=== PATIENT | female | born 1945 | race Caucasian/White ===

== ENCOUNTER 2017-11-15 10:00 | Outpatient (RCR) | payer OTHER | END 2017-11-17 23:59 | LOC: NEWBEG 10:00 | PROVIDERS: ATTEND Psychiatry & Neurology Psychiatry | DX: F33.1 Major depressive disorder, recurrent, moderate (principal); F41.9 Anxiety disorder, unspecified | CPT/HCPCS: 90792; 90853 ==

== ENCOUNTER 2017-12-18 10:00 | Outpatient (RCR) | END 2017-12-18 23:59 | LOC: NEWBEG 10:00 | PROVIDERS: ATTEND Psychiatry & Neurology Psychiatry | DX: F33.1 Major depressive disorder, recurrent, moderate (principal); F41.9 Anxiety disorder, unspecified | CPT/HCPCS: 90853; 99213 ==

== ENCOUNTER 2018-02-17 10:00 | Outpatient (RCR) | END 2018-02-17 23:59 | LOC: NEWBEG 10:00 | PROVIDERS: ATTEND Psychiatry & Neurology Psychiatry | DX: F33.1 Major depressive disorder, recurrent, moderate (principal); F41.9 Anxiety disorder, unspecified | CPT/HCPCS: 90853; 99213 ==

== ENCOUNTER 2018-03-19 10:00 | Outpatient (RCR) | END 2018-03-20 23:59 | LOC: NEWBEG 10:00 | PROVIDERS: ATTEND Psychiatry & Neurology Psychiatry | DX: F33.1 Major depressive disorder, recurrent, moderate (principal); F41.9 Anxiety disorder, unspecified | CPT/HCPCS: 90853; 99214 ==

== ENCOUNTER 2018-04-16 10:00 | Outpatient (RCR) | END 2018-04-17 23:59 | LOC: NEWBEG 10:00 | PROVIDERS: ATTEND Psychiatry & Neurology Psychiatry | DX: F33.1 Major depressive disorder, recurrent, moderate (principal); F41.9 Anxiety disorder, unspecified | CPT/HCPCS: 90853; 99213 ==

== ENCOUNTER 2018-05-16 10:00 | Outpatient (RCR) | END 2018-05-18 23:59 | LOC: NEWBEG 10:00 | PROVIDERS: ATTEND Psychiatry & Neurology Psychiatry | DX: F33.1 Major depressive disorder, recurrent, moderate (principal); F41.9 Anxiety disorder, unspecified | CPT/HCPCS: 90853; 99213 ==

== ENCOUNTER 2018-06-16 10:00 | Outpatient (RCR) | END 2018-06-17 23:59 | LOC: NEWBEG 10:00 | PROVIDERS: ATTEND Psychiatry & Neurology Psychiatry | DX: F33.1 Major depressive disorder, recurrent, moderate (principal); F41.9 Anxiety disorder, unspecified | CPT/HCPCS: 90853; 99213 ==

== ENCOUNTER 2018-07-18 10:00 | Outpatient (RCR) | END 2018-07-18 23:59 | LOC: NEWBEG 10:00 | PROVIDERS: ATTEND Psychiatry & Neurology Psychiatry | DX: F33.1 Major depressive disorder, recurrent, moderate (principal); F41.9 Anxiety disorder, unspecified | CPT/HCPCS: 90853; 99213 ==

== ENCOUNTER 2018-10-17 10:00 | Outpatient (RCR) | payer OTHER | END 2018-10-18 23:59 | LOC: NEWBEG 10:00 | PROVIDERS: ATTEND Psychiatry & Neurology Psychiatry | DX: F33.1 Major depressive disorder, recurrent, moderate (principal); F41.9 Anxiety disorder, unspecified | CPT/HCPCS: 90853; 99213 ==